=== PATIENT | female | born 1965 | race Caucasian/White ===

== ENCOUNTER 2020-05-07 19:02 | Inpatient (IN) | payer OTHER ==
[2020-05-07] MEDS ORDERED: PIPERACILLIN-TAZOBACTAM 3.375 GM in SODIUM CHLORIDE 0.9% 100 ML IVPB STA (19:27)
[2020-05-07] MEDS ORDERED: VANCOMYCIN IV PER PHARMACY 1 EACH MISC MISCELLANE PRN (19:27)
[2020-05-07] MEDS ORDERED: IBUPROFEN 600 MG TAB PO STA (19:27)
[2020-05-07] MEDS ORDERED: VANCOMYCIN 2,000 MG in SODIUM CHLORIDE 0.9% 500 ML 500 ML IVPB STA (19:33)
--- NOTE | 2020-05-07 19:52 | ED ---
Skin/Abscess/FB HPI - General Chief complaint: Skin/Abscess/Foreign Body Stated complaint: cellulitis rt leg Time Seen by Provider: 05/07/20 19:19 Source: patient, RN notes reviewed, old records reviewed, Caregiver Mode of arrival: ambulatory Limitations: no limitations - History of Present Illness Initial comments: Patient states that he 54-year-old female who presents the emergency department today with chief complaint of right lower extremity cellulitis. Patient was sent here from [facility]. Patient reportedly woke up today with significant r edness and swelling over right lower extremity. She reports she does have dry cracked heels. She is nondiabetic. Patient has 101 fever. She reports she did notice that she had a fever couple days ago but that time and no signs of synovitis. Patient states that she's had no history of resistant skin infections. - Related Data Home Medications Medication Instructions Recorded Confirmed A.C.S.(All Cells Salts) Oral 2 sprays PO BID 05/07/20 05/07/20 Solution Straightening Press Operator Capsule 2 cap PO TID 05/07/20 05/07/20 Iosol Oral Drops 3 drops PO DAILY 05/07/20 05/07/20 Med-Stim Capsule 1 cap PO TID 05/07/20 05/07/20 Allergies Allergy/AdvReac Type Severity Reaction Status Date / Time Fish Containing Products Allergy Anaphylaxis Verified 05/07/20 21:13 [Fish] watermelon Allergy Anaphylaxis Verified 05/07/20 21:13 Review of Systems ROS Statement: Those systems with pertinent positive or pertinent negative responses have been documented in the HPI. ROS Other: All systems not noted in ROS Statement are negative. Past Medical History Past Medical History: Thyroid Disorder Additional Past Medical History / Comment(s): hypothyroidism History of Any Multi-Drug Resistant Organisms: None Reported Past Surgical History: Cholecystectomy Past Psychological History: No Psychological Hx Reported Smoking Status: Never smoker Past Alcohol Use History: Rare Past Drug Use History: None Reported General Exam - General Exam Comments Initial Comments: 54 year old female, no distress. Limitations: no limitations General appearance: alert, in no apparent distress Head exam: Present: atraumatic, normocephalic, normal inspection Eye exam: Present: normal appearance, PERRL, EOMI. Absent: scleral icterus, conjunctival injection, periorbital swelling ENT exam: Present: normal exam, mucous membranes moist Neck exam: Present: normal inspection Respiratory exam: Present: normal lung sounds bilaterally. Absent: respiratory distress, wheezes, rales, rhonchi, stridor Cardiovascular Exam: Present: regular rate, normal rhythm, normal heart sounds. Absent: systolic murmur, diastolic murmur, rubs, gallop, clicks GI/Abdominal exam: Present: soft Extremities exam: Present: normal inspection, full ROM, normal capillary refill, other (Patient has significant erythema and induration over the right leg and calf up to the knee. No palpable cord.). Absent: tenderness, pedal edema, joint swelling, calf tenderness Back exam: Present: normal inspection Neurological exam: Present: alert, oriented X3, CN II-XII intact Psychiatric exam: Present: normal affect, normal mood Skin exam: Present: warm, dry, intact, normal color. Absent: rash Course Vital Signs 05/07/20 05/07/20 05/07/20 19:08 20:23 21:05 Temperature 101.2 F H 98.7 F Pulse Rate 142 H 110 H 101 H Respiratory 20 19 18 Rate Blood Pressure 164/96 147/96 145/97 O2 Sat by Pulse 96 99 96 Oximetry 05/07/20 22:04 Temperature Pulse Rate 100 Respiratory 19 Rate Blood Pressure 134/88 O2 Sat by Pulse 97 Oximetry Medical Decision Making - Medical Decision Making 54-year-old female presents with 1 day of significant right lower extremity redness and swelling. Patient states initially started with cracked sore in her foot. She is nondiabetic. Patient has extensive cellulitis extending to the knee. Patient was started on IV Zosyn and vancomycin. She did have a fever of 102 today. Patient is also found to have urinary tract infection. Patient will have urine culture completed. Discussed the case with Shaheed Butler who accepts admission for [facility]. - Lab Data Result diagrams: 05/07/20 19:51 05/07/20 19:51 Lab Results 05/07/20 05/07/20 05/07/20 Range/Units 19:51 19:51 19:51 WBC 17.7 H (3.8-10.6) k/uL RBC 4.58 (3.80-5.40) m/uL Hgb 14.3 (11.4-16.0) gm/dL Hct 41.9 (34.0-46.0) % MCV 91.4 (80.0-100.0) fL MCH 31.1 (25.0-35.0) pg MCHC 34.0 (31.0-37.0) g/dL RDW 12.4 (11.5-15.5) % Plt Count 241 (150-450) k/uL MPV 7.7 Neutrophils % 86 % Lymphocytes % 6 % Monocytes % 4 % Eosinophils % 1 % Basophils % 1 % Neutrophils # 15.1 H (1.3-7.7) k/uL Lymphocytes # 1.1 (1.0-4.8) k/uL Monocytes # 0.6 (0-1.0) k/uL Eosinophils # 0.2 (0-0.7) k/uL Basophils # 0.2 (0-0.2) k/uL PT 10.4 (9.0-12.0) sec INR 1.0 (<1.2) APTT 22.3 (22.0-30.0) sec Sodium 135 L (137-145) mmol/L Potassium 3.7 (3.5-5.1) mmol/L Chloride 104 (98-107) mmol/L Carbon Dioxide 21 L (22-30) mmol/L Anion Gap 10 mmol/L BUN 14 (7-17) mg/dL Creatinine 0.83 (0.52-1.04) mg/dL Est GFR (CKD-EPI)AfAm >90 (>60 ml/min/1.73 sqM) Est GFR (CKD-EPI)NonAf 80 (>60 ml/min/1.73 sqM) Glucose 133 H (74-99) mg/dL Plasma Lactic Acid Brennen (0.7-2.0) mmol/L Calcium 9.1 (8.4-10.2) mg/dL Total Bilirubin 1.0 (0.2-1.3) mg/dL AST 36 (14-36) U/L ALT 37 H (4-34) U/L Alkaline Phosphatase 92 (38-126) U/L C-Reactive Protein 216.3 H (<10.0) mg/L Total Protein 7.3 (6.3-8.2) g/dL Albumin 4.1 (3.5-5.0) g/dL Urine Color Urine Appearance (Clear) Urine pH (5.0-8.0) Ur Specific [place] (1.001-1.035) Urine Protein (Negative) Urine Glucose (UA) (Negative) Urine Ketones (Negative) Urine Blood (Negative) Urine Nitrite (Negative) Urine Bilirubin (Negative) Urine Urobilinogen (<2.0) mg/dL Ur Leukocyte Esterase (Negative) Urine RBC (0-5) /hpf Urine WBC (0-5) /hpf Urine WBC Clumps (None) /hpf Ur Squamous Epith Cells (0-4) /hpf Urine Mucus (None) /hpf 05/07/20 05/07/20 Range/Units 19:51 20:10 WBC (3.8-10.6) k/uL RBC (3.80-5.40) m/uL Hgb (11.4-16.0) gm/dL Hct (34.0-46.0) % MCV (80.0-100.0) fL MCH (25.0-35.0) pg MCHC (31.0-37.0) g/dL RDW (11.5-15.5) % Plt Count (150-450) k/uL MPV Neutrophils % % Lymphocytes % % Monocytes % % Eosinophils % % Basophils % % Neutrophils # (1.3-7.7) k/uL Lymphocytes # (1.0-4.8) k/uL Monocytes # (0-1.0) k/uL Eosinophils # (0-0.7) k/uL Basophils # (0-0.2) k/uL PT (9.0-12.0) sec INR (<1.2) APTT (22.0-30.0) sec Sodium (137-145) mmol/L Potassium (3.5-5.1) mmol/L Chloride (98-107) mmol/L Carbon Dioxide (22-30) mmol/L Anion Gap mmol/L BUN (7-17) mg/dL Creatinine (0.52-1.04) mg/dL Est GFR (CKD-EPI)AfAm (>60 ml/min/1.73 sqM) Est GFR (CKD-EPI)NonAf (>60 ml/min/1.73 sqM) Glucose (74-99) mg/dL Plasma Lactic Acid Brennen 1.3 (0.7-2.0) mmol/L Calcium (8.4-10.2) mg/dL Total Bilirubin (0.2-1.3) mg/dL AST (14-36) U/L ALT (4-34) U/L Alkaline Phosphatase (38-126) U/L C-Reactive Protein (<10.0) mg/L Total Protein (6.3-8.2) g/dL Albumin (3.5-5.0) g/dL Urine Color Dark Yellow Urine Appearance Turbid H (Clear) Urine pH 6.5 (5.0-8.0) Ur Specific [place] 1.030 (1.001-1.035) Urine Protein 2+ H (Negative) Urine Glucose (UA) Negative (Negative) Urine Ketones 2+ H (Negative) Urine Blood Small H (Negative) Urine Nitrite Negative (Negative) Urine Bilirubin Negative (Negative) Urine Urobilinogen 2.0 (<2.0) mg/dL Ur Leukocyte Esterase Large H (Negative) Urine RBC 40 H (0-5) /hpf Urine WBC >182 H (0-5) /hpf Urine WBC Clumps Few H (None) /hpf Ur Squamous Epith Cells 11 H (0-4) /hpf Urine Mucus Moderate H (None) /hpf 05/07/20 20:23 EKG shows sinus tachycardia will voltage QRS. Septal infarct age undetermined. T-wave consider inferior ischemia. Ventricular rate of 1 21 bpm period. Intervals 168 ms. QRS duration is 92 ms. QT QTc is 36/434 ms. - Radiology Data Radiology results: report reviewed No acute bony amount. Soft tissue swelling consistent with cellulitis. Foot x- ray shows soft tissue swelling cellulitis. No evidence of osteomyelitis. Ultrasound shows no evidence of DVT within the right leg. Disposition Clinical Impression: Cellulitis of right leg, Sepsis, UTI (urinary tract infection) Disposition: ADMITTED IP TO THIS HOSP Condition: Stable Is patient prescribed a controlled substance at d/c from ED?: No Referrals: None,Stated [Primary Care Provider] - 1-2 days Time of Disposition: 22:34
[2020-05-07] MEDS: SODIUM CHLORIDE 0.9% 1,000 ML IV SCH (20:12)
[2020-05-07] MEDS: SODIUM CHLORIDE 0.9% 500 ML 500 ML IV SCH ×3 (20:14→22:09)
[2020-05-07] MEDS ORDERED: MORPHINE SULFATE 4 MG/ML SYRINGE IVP STA (20:20)
[2020-05-07 20:23] LABS: Basophils # (A) 0.2 k/uL (0-0.2); Basophils % (A) 1 %; Eosinophils # (A) 0.2 k/uL (0-0.7); Eosinophils % (A) 1 %; HCT 41.9 % (34.0-46.0); HGB 14.3 gm/dL (11.4-16.0); Lymphocytes # (A) 1.1 k/uL (1.0-4.8); Lymphocytes % (A) 6 %; MCH 31.1 pg (25.0-35.0); MCV 91.4 fL (80.0-100.0); Mean Platelet Volume 7.7; Monocytes # (A) 0.6 k/uL (0-1.0); Monocytes % (A) 4 %; Neutrophils # (A) 15.1 k/uL (1.3-7.7); Neutrophils % (A) 86 %; Platelet Count 241 k/uL (150-450); RBC 4.58 m/uL (3.80-5.40); RDW 12.4 % (11.5-15.5); WBC 17.7 k/uL (3.8-10.6)
[2020-05-07 20:28] LABS: Appearance,Urine Turbid (Clear); Bilirubin,Urine Negative (Negative); Blood,Urine Small (Negative); Color,Urine Dark Yellow; Glucose,Urine (UA) Negative (Negative); Ketones,Urine 2+ (Negative); Leukocyte Esterase,Urine Large (Negative); Mucus,Urine Moderate /hpf; Nitrite,Urine Negative (Negative); PH, Urine 6.5 (5.0-8.0); Protein,Urine 2+ (Negative); RBC,Urine 40 /hpf (0-5); Squamous Epithelial Cell,Urine 11 /hpf (0-4); WBC,Urine >182 /hpf (0-5)
[2020-05-07 20:41] LABS: ALT 37 U/L (4-34); AST 36 U/L (14-36); African American GFR (CKD) >90 (>60 ml/min/1.73 sqM); Albumin 4.1 g/dL (3.5-5.0); Alkaline Phosphatase 92 U/L (38-126); Anion Gap 10 mmol/L; Blood Urea Nitrogen 14 mg/dL (7-17); Calcium 9.1 mg/dL (8.4-10.2); Carbon Dioxide 21 mmol/L (22-30); Chloride 104 mmol/L (98-107); Glucose 133 mg/dL (74-99); Non-African American GFR(CKD) 80 (>60 ml/min/1.73 sqM); Potassium 3.7 mmol/L (3.5-5.1); Sodium 135 mmol/L (137-145); Total Protein 7.3 g/dL (6.3-8.2)
--- NOTE | 2020-05-07 20:44 | XR ---
EXAMINATION TYPE: XR foot complete RT DATE OF EXAM: 05/07/2020 COMPARISON: NONE HISTORY: Cellulitis. TECHNIQUE: 3 views FINDINGS: There is diffuse soft tissue swelling. There is plantar calcaneal spurring. Metatarsals are intact. There is spurring at the first MP joint. I see no fracture nor dislocation. There is no foca l bone destruction. IMPRESSION: Soft tissue swelling consistent with cellulitis. No evidence of osteomyelitis.
--- NOTE | 2020-05-07 20:45 | XR ---
EXAMINATION TYPE: XR tibia fibula RT DATE OF EXAM: 05/07/2020 COMPARISON: NONE HISTORY: Cellulitis TECHNIQUE: 3 views FINDINGS: There is diffuse soft tissue swelling around the calf. I see no fracture nor dislocation. T here is no evidence of focal bone destruction. There is mild osteoarthritis at the knee joint. IMPRESSION: No acute bony abnormality. Soft tissue swelling consistent with cellulitis.
[2020-05-07 20:52] LABS: Partial Thromboplastin Time 22.3 sec (22.0-30.0); Prothrombin Time 10.4 sec (9.0-12.0)
[2020-05-07 21:24] LABS: C Reactive Protein 216.3 mg/L (<10.0)
--- NOTE | 2020-05-07 21:49 | US ---
EXAMINATION TYPE: US venous doppler duplex LE RT DATE OF EXAM: 05/07/2020 9:38 PM COMPARISON: NONE CLINICAL HISTORY: cellulitis. Cellulitis. Pain and swelling to right leg x 2 days. Redness. No hx of DVT. Patient does not take blood thinners. SIDE PERFORMED: Right TECHNIQUE: The lower extremity deep venous system is examined utilizing real time linear array sonog li with graded compression, doppler sonography and color-flow sonography. VESSELS IMAGED: Common Femoral Vein Deep Femoral Vein Greater Saphenous Vein * Femoral Vein Popliteal Vein Small Saphenous Vein * Proximal Calf Veins (* superficial vessels) Right Leg: Limited exam due to swelling and patient body habitus. No evidence of DVT in veins imaged at this time. There appears to be a duplicate popliteal vein distally. Limited visibility of proxima l calf veins. Hypoechoic area with hyperechoic center seen in the right groin measurin.0 x 1.3 x 1.0 cm. IMPRESSION: No evidence of deep vein thrombosis in the right leg.
[2020-05-07] MEDS ORDERED: ONDANSETRON 4 MG/2 ML VIAL IVP PRN (22:34)
[2020-05-07] MEDS ORDERED: NALOXONE 0.4 MG/ML 1 ML VIAL IV PRN (22:34)
[2020-05-07] MEDS ORDERED: KETOROLAC 15 MG/ML 1 ML VIAL IVP PRN (22:34)
[2020-05-07] MEDS ORDERED: MORPHINE SULFATE 4 MG/ML SYRINGE IV PRN (22:34)
[2020-05-07] MEDS ORDERED: ACETAMINOPHEN TAB 325 MG TAB PO PRN (22:34)
[2020-05-07] MEDS ORDERED: IBUPROFEN 400 MG TAB PO PRN (22:34)
[2020-05-08] MEDS: SODIUM CHLORIDE 0.9% 500 ML 500 ML IV SCH (01:31)
[2020-05-08 01:39] LABS: Glucose,Whole Blood 138 mg/dL (75-99)
[2020-05-08] MEDS: SODIUM CHLORIDE 0.9% 1,000 ML IV SCH ×3 (04:45→23:21)
[2020-05-08 06:30] LABS: Glucose,Whole Blood 107 mg/dL (75-99)
[2020-05-08] MEDS: HEPARIN SODIUM,PORCINE 5,000 UNIT/ML 1 ML VIAL SQ SCH ×2 (08:23→23:21)
[2020-05-08] MEDS ORDERED: [UNRECOGNIZED DRUG - OTHER] PO SCH (09:00)
[2020-05-08] MEDS ORDERED: PANTOPRAZOLE 40 MG/10 ML VIAL IV SCH (09:00)
[2020-05-08] MEDS ORDERED: [UNRECOGNIZED DRUG - OTHER] PO SCH (09:00)
[2020-05-08] MEDS ORDERED: [UNRECOGNIZED DRUG - OTHER] PO SCH (09:00)
[2020-05-08] MEDS ORDERED: FAMOTIDINE 20 MG/2 ML VIAL IV SCH (09:00)
[2020-05-08] MEDS ORDERED: VANCOMYCIN 2,000 MG in SODIUM CHLORIDE 0.9% 500 ML 500 ML IVPB SCH (09:00)
[2020-05-08] MEDS ORDERED: [UNRECOGNIZED DRUG - OTHER] PO SCH (09:00)
--- NOTE | 2020-05-08 10:21 | P.HPIM ---
History of Present Illness This is a pleasant 64 years old female with past medical history of hypothyroidism. Presents because of right leg swelling, warmth, tenderness of 3 days' duration, she denies trauma however this cracks in the heel. She denies chest pain or dyspnea or abdominal pain. No fever. No nausea vomiting. Vitas looks stable and patient is afebrile currently however on admission she had a fever of 101.2 Labs showed leukocytosis of 17.7 K, sodium 135, rest of CBC, INR, BMP and liver enzymes were unremarkable sugar is controlled. Urinalysis is suspicious of infection. Urine cultures pending. EKG showing sinus tachycardia with no significant ST-T changes. venous Doppler: No DVT in the right leg hypoechoic area with hyperEchoic Center seen in the right groin measuring 2.0 x 1.3 x 1.0 cm Right leg x-ray showing no acute bony abnormality. Soft tissue swelling consistent with cellulitis. Soft tissue swelling consistent with cellulitis. No evidence of osteomyelitis. In the emergency room patient was started on Zosyn and vancomycin time 1 doses and then continued with IV vancomycin. Infectious disease team was consulted from ED Review of Systems CONSTITUTIONAL: No fever, no malaise, no fatigue. HEENT: No recent visual problems or hearing problems. Denied any sore throat. CARDIOVASCULAR: No orthopnea, PND, no palpitations, no syncope. PULMONARY: No shortness of breath, no cough, no hemoptysis. GASTROINTESTINAL: No diarrhea, no nausea, no vomiting, no abdominal pain. Normoactive bowel sounds. NEUROLOGICAL: No headaches, no weakness, no numbness. HEMATOLOGICAL: Denies any bleeding or petechiae. GENITOURINARY: Denies any burning micturition, frequency, or urgency. MUSCULOSKELETAL/RHEUMATOLOGICAL: Denies any joint pain, swelling, or any muscle pain. ENDOCRINE: Denies any polyuria or polydipsia. Past Medical History Past Medical History: Thyroid Disorder Additional Past Medical History / Comment(s): hypothyroidism History of Any Multi-Drug Resistant Organisms: None Reported Past Surgical History: Cholecystectomy Past Psychological History: No Psychological Hx Reported Smoking Status: Never smoker Past Alcohol Use History: Rare Past Drug Use History: None Reported Medications and Allergies Home Medications Medication Instructions Recorded Confirmed Type A.C.S.(All Cells Salts) Oral 2 sprays PO BID 05/07/20 05/07/20 History Solution Embosser Apprentice Capsule 2 cap PO TID 05/07/20 05/07/20 History Iosol Oral Drops 3 drops PO DAILY 05/07/20 05/07/20 History Med-Stim Capsule 1 cap PO TID 05/07/20 05/07/20 History Allergies Allergy/AdvReac Type Severity Reaction Status Date / Time Fish Containing Products Allergy Anaphylaxis Verified 05/07/20 21:13 [Fish] watermelon Allergy Anaphylaxis Verified 05/07/20 21:13 Physical Exam Vitals: Vital Signs Temp Pulse Resp BP Pulse Ox 05/08/20 02:30 19 05/08/20 02:00 97.8 F 87 19 138/85 97 05/07/20 22:04 100 19 134/88 97 05/07/20 21:05 98.7 F 101 H 18 145/97 96 05/07/20 20:23 110 H 19 147/96 99 05/07/20 19:08 101.2 F H 142 H 20 164/96 96 Intake and Output 05/07/20 05/08/20 05/08/20 22:59 06:59 14:59 Other: # Voids 1 Weight 136.078 kg GENERAL: The patient is alert and oriented x3, not in any acute distress. Well developed, well nourished. HEENT: Pupils are round and equally reacting to light. EOMI. No scleral icterus. No conjunctival pallor. Normocephalic, atraumatic. No pharyngeal erythema. No thyromegaly. CARDIOVASCULAR: S1 and S2 present. No murmurs, rubs, or gallops. PULMONARY: Chest is clear to auscultation, no wheezing or crackles. ABDOMEN: Soft, nontender, nondistended, normoactive bowel sounds. No palpable organomegaly. MUSCULOSKELETAL: No joint swelling or deformity. -EXTREMITIES: No cyanosis, clubbing, or pedal edema. Right leg swelling, warm, red and tender NEUROLOGICAL: Gross neurological examination did not reveal any focal deficits. SKIN: No rashes. No petechiae Results CBC & Chem 7: 05/07/20 19:51 05/07/20 19:51 Labs: Abnormal Lab Results - Last 24 Hours (Table) 05/07/20 05/07/20 05/07/20 Range/Units 19:51 19:51 20:10 WBC 17.7 H (3.8-10.6) k/uL Neutrophils # 15.1 H (1.3-7.7) k/uL Sodium 135 L (137-145) mmol/L Carbon Dioxide 21 L (22-30) mmol/L Glucose 133 H (74-99) mg/dL POC Glucose (mg/dL) (75-99) mg/dL ALT 37 H (4-34) U/L C-Reactive Protein 216.3 H (<10.0) mg/L Urine Appearance Turbid H (Clear) Urine Protein 2+ H (Negative) Urine Ketones 2+ H (Negative) Urine Blood Small H (Negative) Ur Leukocyte Esterase Large H (Negative) Urine RBC 40 H (0-5) /hpf Urine WBC >182 H (0-5) /hpf Urine WBC Clumps Few H (None) /hpf Ur Squamous Epith Cells 11 H (0-4) /hpf Urine Mucus Moderate H (None) /hpf 05/08/20 05/08/20 Range/Units 01:36 06:27 WBC (3.8-10.6) k/uL Neutrophils # (1.3-7.7) k/uL Sodium (137-145) mmol/L Carbon Dioxide (22-30) mmol/L Glucose (74-99) mg/dL POC Glucose (mg/dL) 138 H 107 H (75-99) mg/dL ALT (4-34) U/L C-Reactive Protein (<10.0) mg/L Urine Appearance (Clear) Urine Protein (Negative) Urine Ketones (Negative) Urine Blood (Negative) Ur Leukocyte Esterase (Negative) Urine RBC (0-5) /hpf Urine WBC (0-5) /hpf Urine WBC Clumps (None) /hpf Ur Squamous Epith Cells (0-4) /hpf Urine Mucus (None) /hpf Microbiology - Last 24 Hours (Table) 05/07/20 20:10 Urine Culture - Preliminary Urine,Clean Catch Assessment and Plan Assessment: Cellulitis of the right leg Possible Acute urinary tract infection Sepsis secondary to above Right groin lymphadenopathy versus mass (ultrasound: hypoechoic area with hyperEchoic Center seen in the right groin measuring 2.0 x 1.3 x 1.0 cm) Hypothyroidism Morbid Obesity with BMI of 45 Plan: This is a pleasant 54 years old female who presents with right leg cellulitis and possible UTI and right groin mass. Continue with antibiotics, monitor leg swelling clinically, follow-up urine culture. Monitor labs and creatinine. Consult surgery team for the right groin mass versus lymphadenopathy Labs and medication were reviewed.. Continue same treatment. Continue with symptomatic treatment. Resume home medication. Monitor lytes and vitals. DVT and GI prophylaxis. Further recommendations depends on the clinical course of the patient DVT prophylaxis: Subcutaneous heparin GI Prophylaxis: Pepcid PT/OT: Pending
[2020-05-08 11:32] LABS: Glucose,Whole Blood 116 mg/dL (75-99)
--- NOTE | 2020-05-08 14:53 | P.GSCN ---
History of Present Illness Consult date: 05/08/20 History of present illness: CHIEF COMPLAINT: Right leg cellulitis HISTORY OF PRESENT ILLNESS: This is a 54-year-old female with a known history of hypothyroidism and cholecystectomy. She presents to the ER with complaints of right leg swelling, tenderness and redness that started about 3 days ago. Patient denies any trauma to her leg. She does report having a cracked heel may be activating factor. She's never had cellulitis before. Denies any history of diabetes. She has been febrile with a temp of 101.2 WBC 17.7. She had a venous Doppler that was negative for DVT of the right leg. But did reveal a hypoechoic area with hyperechoic centers seen in the right groin measuring 2 x 1.3 x 1.0 cm. Patient is currently on IV vancomycin. Patient denies any nausea or vomiting. Denies any abdominal pain. Denies any urinary symptoms. PAST MEDICAL HISTORY: See list. PAST SURGICAL HISTORY: See list. MEDICATIONS: See list. ALLERGIES: See list. SOCIAL HISTORY: No illicit drug use. REVIEW OF SYSTEMS: CONSTITUTIONAL: Denies fever or chills. HEENT: Denies blurred vision, vision changes, or eye pain. Denies hemoptysis CARDIOVASCULAR: Denies chest pain or pressure. RESPIRATORY: No shortness of breath. GASTROINTESTINAL: See HPI for pertinent findings HEMATOLOGIC: Denies bleeding disorders. GENITOURINARY: Denies any blood in urine or increased urinary frequency. SKIN: Denies pruitis. Denies rash. PHYSICAL EXAM: VITAL SIGNS: Reviewed GENERAL: Well-developed in no acute distress. HEENT: No sclera icterus. Extraocular movements grossly intact. Moist buccal mucosa. Head is atraumatic, normocephalic. No nasal drainage. ABDOMEN: Soft. Nondistended. Nondistended NEUROLOGIC: Alert and oriented. Cranial nerves II through XII grossly intact. Extremities: Right leg lower extremity cellulitis. Erythema and swelling below the knee to the right ankle. Patient does have cracked heel. Groin: Right groin 2 palpable pea-sized lymph nodes LABORATORY DATA: WBC 17.7 hemoglobin 14.3 creatinine 0.83 IMAGING: Venous Doppler negative for DVT of the right leg. But did reveal a hypoechoic area with hyperechoic centers seen in the right groin measuring 2 x 1.3 x 1.0 cm. X-ray of the tibia-fibula fibula of the right leg no acute bony abnormality. Soft tissue swelling consistent with cellulitis Right foot x-ray soft tissue consistent with cellulitis. No evidence of osteomyelitis ASSESSMENT: 1. Right lower extremity cellulitis with sepsis 2. hypoechoic area with hyperechoic center seen in the right groin measuring 2 x 1.3 x 1.0 cm noted on venous Doppler. This could be due to enlarged lymph node that is inflamed from the right lower extremity cellulitis PLAN: -Continue IV antibiotics -We'll continue to monitor -No surgical intervention planned at this time Thank you for this consultation Physician Grinding And Polishing Laborer note has been reviewed by physician. Signing provider agrees with the documented findings, assessment, and plan of care. Past Medical History Past Medical History: Thyroid Disorder Additional Past Medical History / Comment(s): hypothyroidism History of Any Multi-Drug Resistant Organisms: None Reported Past Surgical History: Cholecystectomy Past Psychological History: No Psychological Hx Reported Smoking Status: Never smoker Past Alcohol Use History: Rare Past Drug Use History: None Reported Medications and Allergies Home Medications Medication Instructions Recorded Confirmed Type A.C.S.(All Cells Salts) Oral 2 sprays PO BID 05/07/20 05/07/20 History Solution Laboratory Apparatus Glass Grinder Capsule 2 cap PO TID 05/07/20 05/07/20 History Iosol Oral Drops 3 drops PO DAILY 05/07/20 05/07/20 History Med-Stim Capsule 1 cap PO TID 05/07/20 05/07/20 History Allergies Allergy/AdvReac Type Severity Reaction Status Date / Time Fish Containing Products Allergy Anaphylaxis Verified 05/07/20 21:13 [Fish] watermelon Allergy Anaphylaxis Verified 05/07/20 21:13 Surgical - Exam Vital Signs Temp Pulse Resp BP Pulse Ox 101.2 F H 142 H 20 164/96 96 05/07/20 19:08 05/07/20 19:08 05/07/20 19:08 05/07/20 19:08 05/07/20 19:08 Results - Labs 05/07/20 19:51 05/07/20 19:51 Abnormal Lab Results - Last 24 Hours (Table) 05/07/20 05/07/20 05/07/20 Range/Units 19:51 19:51 20:10 WBC 17.7 H (3.8-10.6) k/uL Neutrophils # 15.1 H (1.3-7.7) k/uL Sodium 135 L (137-145) mmol/L Carbon Dioxide 21 L (22-30) mmol/L Glucose 133 H (74-99) mg/dL POC Glucose (mg/dL) (75-99) mg/dL ALT 37 H (4-34) U/L C-Reactive Protein 216.3 H (<10.0) mg/L Urine Appearance Turbid H (Clear) Urine Protein 2+ H (Negative) Urine Ketones 2+ H (Negative) Urine Blood Small H (Negative) Ur Leukocyte Esterase Large H (Negative) Urine RBC 40 H (0-5) /hpf Urine WBC >182 H (0-5) /hpf Urine WBC Clumps Few H (None) /hpf Ur Squamous Epith Cells 11 H (0-4) /hpf Urine Mucus Moderate H (None) /hpf 05/08/20 05/08/20 05/08/20 Range/Units 01:36 06:27 11:31 WBC (3.8-10.6) k/uL Neutrophils # (1.3-7.7) k/uL Sodium (137-145) mmol/L Carbon Dioxide (22-30) mmol/L Glucose (74-99) mg/dL POC Glucose (mg/dL) 138 H 107 H 116 H (75-99) mg/dL ALT (4-34) U/L C-Reactive Protein (<10.0) mg/L Urine Appearance (Clear) Urine Protein (Negative) Urine Ketones (Negative) Urine Blood (Negative) Ur Leukocyte Esterase (Negative) Urine RBC (0-5) /hpf Urine WBC (0-5) /hpf Urine WBC Clumps (None) /hpf Ur Squamous Epith Cells (0-4) /hpf Urine Mucus (None) /hpf Microbiology - Last 24 Hours (Table) 05/07/20 20:10 Urine Culture - Preliminary Urine,Clean Catch Diabetes panel 05/07/20 Range/Units 19:51 Sodium 135 L (137-145) mmol/L Potassium 3.7 (3.5-5.1) mmol/L Chloride 104 (98-107) mmol/L Carbon Dioxide 21 L (22-30) mmol/L BUN 14 (7-17) mg/dL Creatinine 0.83 (0.52-1.04) mg/dL Glucose 133 H (74-99) mg/dL Calcium 9.1 (8.4-10.2) mg/dL AST 36 (14-36) U/L ALT 37 H (4-34) U/L Alkaline Phosphatase 92 (38-126) U/L Total Protein 7.3 (6.3-8.2) g/dL Albumin 4.1 (3.5-5.0) g/dL Calcium panel 05/07/20 Range/Units 19:51 Calcium 9.1 (8.4-10.2) mg/dL Albumin 4.1 (3.5-5.0) g/dL Pituitary panel 05/07/20 Range/Units 19:51 Sodium 135 L (137-145) mmol/L Potassium 3.7 (3.5-5.1) mmol/L Chloride 104 (98-107) mmol/L Carbon Dioxide 21 L (22-30) mmol/L BUN 14 (7-17) mg/dL Creatinine 0.83 (0.52-1.04) mg/dL Glucose 133 H (74-99) mg/dL Calcium 9.1 (8.4-10.2) mg/dL Adrenal panel 05/07/20 Range/Units 19:51 Sodium 135 L (137-145) mmol/L Potassium 3.7 (3.5-5.1) mmol/L Chloride 104 (98-107) mmol/L Carbon Dioxide 21 L (22-30) mmol/L BUN 14 (7-17) mg/dL Creatinine 0.83 (0.52-1.04) mg/dL Glucose 133 H (74-99) mg/dL Calcium 9.1 (8.4-10.2) mg/dL Total Bilirubin 1.0 (0.2-1.3) mg/dL AST 36 (14-36) U/L ALT 37 H (4-34) U/L Alkaline Phosphatase 92 (38-126) U/L Total Protein 7.3 (6.3-8.2) g/dL Albumin 4.1 (3.5-5.0) g/dL
[2020-05-08 16:31] LABS: Glucose,Whole Blood 119 mg/dL (75-99)
--- NOTE | 2020-05-08 23:41 | CONS ---
CONSULTATION DATE OF SERVICE: 05/08/2020 REASON FOR CONSULTATION: Right lower extremity cellulitis. HISTORY OF PRESENT ILLNESS: The patient is a 54-year-old female presenting to the ER at [facility] yesterday evening for evaluation of increasing pain, swelling and redness of the right lower extremity and this patient's symptoms started a few days prior to presentation to the hospital. The patient noticed to have more swelling and redness of the right leg in addition to the pain. Patient described the pain to be more of a burning, at times sharp, intensity 5 to 6 out of 10 and no radiation. The patient denies any skin breakdown or any drainage. The patient did have a fever. The patient was initially evaluated in the [facility] urgent care and the patient was advised to go to the hospital for evaluation. On arrival to the ER, the patient did have fever of 101 degrees Fahrenheit. The patient was tachycardic. The patient did have white count of 17.7, BUN of 14, creatinine 0.83. Also had positive urine. The patient did have x- rays of the foot and tibia and fibula that was negative and ultrasound that was negative for DVT with evidence of lymphadenopathy in the right groin. The patient was started on vancomycin. Infectious Disease was consulted for further management of antibiotic therapy. REVIEW OF SYSTEMS: Positive points have been mentioned in HPI. Rest of systems are negative. PAST MEDICAL HISTORY: Hypothyroidism. PAST SURGICAL HISTORY: Cholecystectomy. SOCIAL HISTORY: Denies smoking. Rarely drinks. . Lives with her . FAMILY HISTORY: ALLERGIES: No known drug allergies. MEDICATIONS: The patient currently on Tylenol, heparin, Toradol, morphine, Narcan, Zofran, Protonix, and vancomycin pharmacy to dose. PHYSICAL EXAMINATION: Blood pressure 132/86, pulse 100. Temperature 98.2. She is 97% on room air. General description: The patient is a middle-aged female lying in bed in no distress. No tachypnea or accessory muscles of respiration use. HEENT: Examination shows no pallor or scleral icterus. Oral mucous membranes dry. No pharyngeal erythema or thrush. NECK: Trachea central. No thyromegaly. LUNGS: Unlabored breathing. Clear to auscultation anteriorly. No wheezes or crackles. HEART S1, S2. Regular rate and rhythm. ABDOMEN: Soft, no tenderness. No guarding or rigidity. EXTREMITIES: Right leg with diffuse swelling and redness. Warm to touch. No evidence of skin breakdown or any drainage. NEUROLOGICAL: Patient is awake, alert, oriented times three. Mood and affect normal. LABS: Hemoglobin 14.8, white count 13.7, BUN of 14, creatinine 0.83. Electrolytes have been normal. CRP 16.3. Urine is positive. DIAGNOSTIC IMPRESSION AND PLAN: Patient admitted to the hospital with lower extremity cellulitis. Patient did have a fever, tachycardia and elevated white count, source is right lower extremity cellulitis in this patient who did have diffuse swelling and redness, likely streptococcal disease, clinically doubt MRSA gram-negative infection. PLAN: 1. Discontinue vancomycin. 2. Start the patient on cefazolin 2 grams q.8 hours. 3. Shukri wrap to the right leg . 4. We will follow on her clinical condition and culture to further adjust medication if needed. Thank you for this consultation. We will follow this patient along with you. MMODL / IJN: [id number] /
[2020-05-09 07:02] LABS: Basophils # (A) 0.1 k/uL (0-0.2); Basophils % (A) 1 %; Eosinophils # (A) 0.2 k/uL (0-0.7); Eosinophils % (A) 2 %; HCT 34.7 % (34.0-46.0); HGB 11.6 gm/dL (11.4-16.0); Lymphocytes # (A) 1.8 k/uL (1.0-4.8); Lymphocytes % (A) 18 %; MCH 31.3 pg (25.0-35.0); MCHC 33.5 g/dL (31.0-37.0); MCV 93.4 fL (80.0-100.0); Mean Platelet Volume 7.1; Monocytes # (A) 0.4 k/uL (0-1.0); Monocytes % (A) 4 %; Neutrophils % (A) 71 %; Platelet Count 229 k/uL (150-450); RBC 3.71 m/uL (3.80-5.40); RDW 12.6 % (11.5-15.5); WBC 9.9 k/uL (3.8-10.6)
[2020-05-09] MEDS: HEPARIN SODIUM,PORCINE 5,000 UNIT/ML 1 ML VIAL SQ SCH ×2 (08:18→20:15)
[2020-05-09] MEDS: PANTOPRAZOLE 40 MG TABLET PO SCH (08:18)
[2020-05-09 11:44] LABS: African American GFR (CKD) 96.2 (60.0-200.0)
[2020-05-09] MEDS ORDERED: VANCOMYCIN TROUGH DUE 1 EACH MISC MISCELLANE ONE (20:00)
--- NOTE | 2020-05-10 01:32 | P.PN ---
Subjective Progress Note Date: 05/09/20 Principal diagnosis: RLE cellulitis Ms. Lozano is a 54-year-old female with a past medical history of hypothyroidism coming in with right leg swelling tenderness and warmth. She is currently being treated for right lower extremity cellulitis. Patient is seen and examined on the general medical floors today. Patient states that her lower extremity swelling and redness have improved a lot compared to yesterday. She denies having any fevers chills or rigors. No chest pain or palpitations. No cough breathing. On reviewing the patient has been afebrile. Saturating at 98% on room air heart rate of 78 and respiratory rate of 18. Patient had labs done showing decreased white count from 17-9 to 9 today. Active Medications Acetaminophen (Acetaminophen Tab 325 Mg Tab) 650 mg PO Q6HR PRN PRN Reason: Mild Pain or Fever > 100.5 Heparin Sodium (Porcine) (Heparin Sodium,Porcine 5,000 Unit/Ml 1 Ml Vial) 5,000 unit SQ Q12HR [facility] Last Admin: 05/09/20 08:18 Dose: 5,000 unit Documented by: Cefazolin Sodium 2 gm/ Sodium (Chloride) 50 mls @ 100 mls/hr IVPB Q8HR [facility] Last Admin: 05/09/20 08:18 Dose: 100 mls/hr Documented by: Ketorolac Tromethamine (Ketorolac 15 Mg/Ml 1 Ml Vial) 15 mg IVP Q6HR PRN PRN Reason: Moderate Pain Stop: 05/10/20 22:36 Morphine Sulfate (Morphine Sulfate 4 Mg/Ml Syringe) 4 mg IV Q4HR PRN PRN Reason: Severe Pain Naloxone HCl (Naloxone 0.4 Mg/Ml 1 Ml Vial) 0.2 mg IV Q2M PRN PRN Reason: Opioid Reversal Ondansetron HCl (Ondansetron 4 Mg/2 Ml Vial) 4 mg IVP Q8HR PRN PRN Reason: Nausea And Vomiting Pantoprazole Sodium (Pantoprazole 40 Mg Tablet) 40 mg PO AC-BRKFST [facility] Last Admin: 05/09/20 08:18 Dose: 40 mg Documented by: Objective - Vital Signs Vital signs: Vital Signs Temp 98.2 F 05/09/20 08:00 Pulse 93 05/09/20 08:00 Resp 16 05/09/20 08:00 BP 153/91 05/09/20 08:00 Pulse Ox 95 05/09/20 08:00 Intake & Output 05/08/20 05/09/20 05/09/20 18:59 06:59 18:59 Weight 136.078 kg Other: Voiding Method Toilet - Exam GENERAL: The patient is alert and oriented x3, not in any acute distress. Well developed, well nourished. HEENT: Pupils are round and equally reacting to light. EOMI. No scleral icterus. No conjunctival pallor. Normocephalic, atraumatic. No pharyngeal erythema. No thyromegaly. CARDIOVASCULAR: S1 and S2 present. No murmurs, rubs, or gallops. PULMONARY: Chest is clear to auscultation, no wheezing or crackles. ABDOMEN: Soft, nontender, nondistended, normoactive bowel sounds. No palpable organomegaly. MUSCULOSKELETAL: No joint swelling or deformity. -EXTREMITIES: No cyanosis, clubbing, or pedal edema. Right leg swelling, warm, red and tender- receded along the skin marking. NEUROLOGICAL: Gross neurological examination did not reveal any focal deficits. SKIN: No rashes. No petechiae - Labs CBC & Chem 7: 05/09/20 06:46 05/09/20 06:46 Labs: Abnormal Lab Results - Last 24 Hours (Table) 05/08/20 05/09/20 Range/Units 16:29 06:46 RBC 3.71 L (3.80-5.40) m/uL POC Glucose (mg/dL) 119 H (75-99) mg/dL Microbiology - Last 24 Hours (Table) 05/07/20 20:10 Urine Culture - Preliminary Urine,Clean Catch Gram Neg Bacilli 05/07/20 19:51 Blood Culture - Preliminary Blood No Growth after 24 hours Assessment and Plan Assessment: ASSESSMENT Sepsis due to Cellulitis of the right leg Acute urinary tract infection with E coli Sepsis secondary to above Right groin lymphadenopathy versus mass (ultrasound: hypoechoic area with hyperEchoic Center seen in the right groin measuring 2.0 x 1.3 x 1.0 cm) Hypothyroidism Morbid Obesity with BMI of 45 Plan: Patient was initially started on vancomycin which was discontinued and she has been started on cefazolin. Patient's urine culture came back positive for E. coli, she is already on cefazolin which can be continued. Surgery has evaluated the patient for the groin mass and suggested outpatient follow-up. Continue with the current medication regimen. Further recommendations to follow depending on the progress of the patient.
--- NOTE | 2020-05-10 04:08 | PN ---
PROGRESS NOTE DATE OF SERVICE: 05/09/2020. REASON FOR FOLLOW UP: Right lower extremity cellulitis. INTERVAL HISTORY: The patient is currently afebrile. The patient is breathing comfortably. Patient denies having any chest pain. No shortness of breath or cough. No abdominal pain. Overall swelling and redness are currently slightly decreased. PHYSICAL EXAMINATION: Blood pressure 130/84 with a pulse of 73, temperature 98.2. She is 98% on room air. General description is a middle-aged female lying in bed in no distress. Respiratory system: Unlabored breathing, clear to auscultation anteriorly. Heart S1, S2. Regular rate and rhythm. Abdomen soft, no tenderness. Right leg swelling and redness has slightly decreased. LABS: Hemoglobin 9.9. DIAGNOSTIC IMPRESSION AND PLAN: Patient with right lower extremity cellulitis. This patient seems to have shown clinical response to Rocephin to continue for another 24 hours along with Shukri wrap and monitor clinical course. MMODL / IJN: [id number] /
[2020-05-10] MEDS: PANTOPRAZOLE 40 MG TABLET PO SCH (09:53)
[2020-05-10] MEDS: HEPARIN SODIUM,PORCINE 5,000 UNIT/ML 1 ML VIAL SQ SCH ×2 (09:53→20:08)
--- NOTE | 2020-05-10 11:17 | P.PN ---
Progress Note - Text Progress Note Date: 05/10/20 Patient's cellulitis of her right long-term is improved. There is decreased redness and swelling. Patient continue receive IV antibiotic.
[2020-05-10 11:50] LABS: Non-African American GFR(CKD) 97.5 (60.0-200.0)
[2020-05-10 22:06] LABS: Glucose,Whole Blood 92 mg/dL (75-99)
--- NOTE | 2020-05-10 22:49 | PN ---
PROGRESS NOTE DATE OF SERVICE: 05/10/2020 REASON FOR FOLLOWUP: Right lower extremity cellulitis. INTERVAL HISTORY: The patient is currently afebrile, has been breathing comfortably. Right leg swelling is slightly decreased. Denies any chest pain, shortness of breath or cough, no abdominal pain. No diarrhea. PHYSICAL EXAMINATION: Blood pressure 147/92 with a pulse of 74, temperature 98.4. She is 98% on room air. General description: The patient is a middle-aged female lying in bed in no distress. Respiratory system: Unlabored breathing. Clear to auscultation anteriorly. Heart S1, S2. Regular rate and rhythm. Abdomen is soft, no tenderness. Right leg swelling is slightly decreased. LABS: Hemoglobin 11.3, white count 9.9, creatinine 0.7. DIAGNOSTIC IMPRESSION AND PLAN: Patient with acute right lower extremity cellulitis. Clinical improvement to continue for another 24 hours. Shukri wrap to the leg. Finish the oral Keflex. Positive culture with an E coli that is covered with Zosyn the patient is currently on. MMODL / IJN: [id number] /
--- NOTE | 2020-05-11 01:18 | P.PN ---
Subjective Progress Note Date: 05/10/20 Principal diagnosis: RLE cellulitis Ms. Lozano is a 54-year-old female with a past medical history of hypothyroidism coming in with right leg swelling tenderness and warmth. She is currently being treated for right lower extremity cellulitis. Patient is seen and examined on the general medical floors today. Patient states that her lower extremity swelling and redness have improved a lot compared to yesterday. She denies having any fevers chills or rigors. No chest pain or palpitations. No cough breathing. On reviewing the patient has been afebrile. Saturating at 98% on room air heart rate of 78 and respiratory rate of 18. Patient had labs done showing decreased white count from 17-9 to 9 today. On 05/10/2020-patient was seen and examined at bedside. Patient's right lower extremity redness and pain improving. But she still has some redness on the backside of her leg. She denies having any fevers chills or rigors. Cough or difficulty in breathing. No chest pain or palpitations. No dysuria or hematuria. Patient's vitals reviewed afebrile, blood pressure maintaining within normal limits and saturating at 98% on room air patient's labs from this morning showing white count of 9.9 hemoglobin 9.9. Active Medications Acetaminophen (Acetaminophen Tab 325 Mg Tab) 650 mg PO Q6HR PRN PRN Reason: Mild Pain or Fever > 100.5 Heparin Sodium (Porcine) (Heparin Sodium,Porcine 5,000 Unit/Ml 1 Ml Vial) 5,000 unit SQ Q12HR [facility] Last Admin: 05/10/20 20:08 Dose: 5,000 unit Documented by: Cefazolin Sodium 2 gm/ Sodium (Chloride) 50 mls @ 100 mls/hr IVPB Q8HR [facility] Last Admin: 05/10/20 23:21 Dose: 100 mls/hr Documented by: Morphine Sulfate (Morphine Sulfate 4 Mg/Ml Syringe) 4 mg IV Q4HR PRN PRN Reason: Severe Pain Naloxone HCl (Naloxone 0.4 Mg/Ml 1 Ml Vial) 0.2 mg IV Q2M PRN PRN Reason: Opioid Reversal Ondansetron HCl (Ondansetron 4 Mg/2 Ml Vial) 4 mg IVP Q8HR PRN PRN Reason: Nausea And Vomiting Pantoprazole Sodium (Pantoprazole 40 Mg Tablet) 40 mg PO AC-BRKFST [facility] Last Admin: 05/10/20 09:53 Dose: 40 mg Documented by: Objective - Vital Signs Vital signs: Vital Signs Temp 98.4 F 05/10/20 14:00 Pulse 74 05/10/20 14:00 Resp 16 05/10/20 14:00 BP 147/92 05/10/20 16:48 Pulse Ox 16 L 05/10/20 14:00 Intake & Output 05/09/20 05/10/20 05/10/20 18:59 06:59 18:59 Intake Total 540 Output Total 3 Balance 537 Intake: Oral 540 Output: Urine 3 Other: Voiding Method Toilet - Exam PHYSICAL EXAM GENERAL: The patient is alert and oriented x3, not in any acute distress. Well developed, well nourished. HEENT: Pupils are round and equally reacting to light. EOMI. No scleral icterus. No conjunctival pallor. PULMONARY: Chest is clear to auscultation, no wheezing or crackles. ABDOMEN: Soft, nontender, nondistended, normoactive bowel sounds. No palpable organomegaly. MUSCULOSKELETAL: No joint swelling or deformity. -EXTREMITIES: No cyanosis, clubbing, or pedal edema. Right leg swelling, warm, red and tender- receded along the skin marking. NEUROLOGICAL: Gross neurological examination did not reveal any focal deficits. SKIN: No rashes. No petechiae - Labs CBC & Chem 7: 05/09/20 06:46 05/10/20 07:15 Labs: Microbiology - Last 24 Hours (Table) 05/07/20 20:10 Urine Culture - Final Urine,Clean Catch Escherichia coli 05/07/20 19:51 Blood Culture - Preliminary Blood No Growth after 48 hours Assessment and Plan Assessment: ASSESSMENT Sepsis due to Cellulitis of the right leg Acute urinary tract infection with E coli Sepsis secondary to above Right groin lymphadenopathy versus mass (ultrasound: hypoechoic area with hyperEchoic Center seen in the right groin measuring 2.0 x 1.3 x 1.0 cm) Hypothyroidism Morbid Obesity with BMI of 45 Plan: Patient was initially started on vancomycin which was discontinued and she has been started on cefazolin. Patient's urine culture came back positive for E. coli, she is already on cefazolin which can be continued. Surgery has evaluated the patient for the groin mass and suggested outpatient follow-up. She will still need IV abx as the redness on the posterior side of the leg still present. Continue with the current medication regimen. Further recommendations to follow depending on the progress of the patient.
[2020-05-11 07:13] LABS: Glucose,Whole Blood 116 mg/dL (75-99)
[2020-05-11] MEDS: HEPARIN SODIUM,PORCINE 5,000 UNIT/ML 1 ML VIAL SQ SCH (08:06)
[2020-05-11] MEDS: PANTOPRAZOLE 40 MG TABLET PO SCH (08:06)
[2020-05-11 09:10] LABS: African American GFR (CKD) 96.2 (60.0-200.0)
[2020-05-11 11:20] LABS: Glucose,Whole Blood 94 mg/dL (75-99)
--- NOTE | 2020-05-11 14:43 | P.PN ---
Subjective Progress Note Date: 05/11/20 CHIEF COMPLAINT: right leg cellulitis HISTORY OF PRESENT ILLNESS: Follow-up on right leg cellulitis and enlarged lymph nodes in right groin. Patient's cellulitis has improved greatly with IV antibiotics. She's had decreased redness and swelling in her right leg. Afebrile. PHYSICAL EXAM: VITAL SIGNS: Reviewed. GENERAL: Well-developed in no acute distress. HEENT: No sclera icterus. Extraocular movements grossly intact. Moist buccal mucosa. Head is atraumatic, normocephalic. ABDOMEN: Soft. Nondistended. Nontender. NEUROLOGIC: Alert and oriented. Cranial nerves II through XII grossly intact. Extremities: Right leg redness and swelling has decreased. No palpable right groin lymph nodes noted ASSESSMENT: 1. Right lower extremity cellulitis with sepsis 2. hypoechoic area with hyperechoic center seen in the right groin measuring 2 x 1.3 x 1.0 cm noted on venous Doppler. This could be due to enlarged lymph node that is inflamed from the right lower extremity cellulitis PLAN: -Antibiotics per infectious disease -No surgical intervention planned Physician Lodge Attendant note has been reviewed by physician. Signing provider agrees with the documented findings, assessment, and plan of care. Objective - Vital Signs Vital signs: Vital Signs Temp 98.4 F 05/11/20 08:00 Pulse 86 05/11/20 08:00 Resp 22 05/11/20 08:00 BP 136/84 05/11/20 08:00 Pulse Ox 97 05/11/20 08:00 Intake & Output 05/10/20 05/11/20 05/11/20 18:59 06:59 18:59 Other: Voiding Method Toilet # Voids 2 - Labs CBC & Chem 7: 05/09/20 06:46 05/11/20 06:31 Labs: Abnormal Lab Results - Last 24 Hours (Table) 05/11/20 Range/Units 06:57 POC Glucose (mg/dL) 116 H (75-99) mg/dL Microbiology - Last 24 Hours (Table) 05/07/20 19:51 Blood Culture - Preliminary Blood No Growth after 72 hours
--- NOTE | 2020-05-11 14:46 | P.DS ---
Providers Date of admission: 05/07/20 21:32 Expected date of discharge: 05/11/20 Attending physician: Alejandra Oconnor Consults: 05/07/20 22:34 Consult Physician Stat Consulting Provider: Nakia Frazier Consult Reason/Comments: R leg cellulitis Do you want consulting provider notified?: Yes 05/08/20 10:20 Consult Physician Routine Consulting Provider: Garth Dorado Consult Reason/Comments: Right groin mass/LAP. Right leg cellulitis Do you want consulting provider notified?: Yes Primary care physician: Stated None Hospital Course: HPI -Ms. Lozano is a pleasant 64 years old female with past medical history of hypothyroidism. Presents because of right leg swelling, warmth, tenderness of 3 days' duration, she denies trauma however this cracks in the heel. She denies chest pain or dyspnea or abdominal pain. No fever. No nausea vomiting.Patient is afebrile currently however on admission she had a fever of 101.2 Labs showed leukocytosis of 17.7 K, sodium 135, rest of CBC, INR, BMP and liver enzymes were unremarkable sugar is controlled. Urinalysis is suspicious of infection. Urine cultures pending. EKG showing sinus tachycardia with no significant ST-T changes. venous Doppler: No DVT in the right leg hypoechoic area with hyperEchoic Center seen in the right groin measuring 2.0 x 1.3 x 1.0 cm Right leg x-ray showing no acute bony abnormality. Soft tissue swelling consistent with cellulitis. Soft tissue swelling consistent with cellulitis. No evidence of osteomyelitis. In the emergency room patient was started on Zosyn and vancomycin time 1 doses and then continued with IV vancomycin. Infectious disease team was consulted from ED Hospital course - patient's antibiotics were changed to cefazolin by ID. Blood cultures have been negative. Urine cultures are positive for E. coli. Patient showed significant improvement in her right lower extremity cellulitis. Her redness and swelling improved. Patient states that she is able to bear weight and feels that the swelling is going down. She's been cleared by ID Dr. Frazier to be discharged home. She is advised to complete her antibiotic course with Keflex for 10 more days. Vital Signs 05/11/20 08:00 Temperature 98.4 F Pulse Rate [ 86 Pulse Oximetery ] Respiratory 22 Rate Blood Pressure 136/84 [Left Arm] O2 Sat by Pulse 97 Oximetry PHYSICAL EXAM GENERAL: The patient is alert and oriented x3, not in any acute distress. Well developed, well nourished. HEENT: Pupils are round and equally reacting to light. EOMI. No scleral icterus. No conjunctival pallor. PULMONARY: Chest is clear to auscultation, no wheezing or crackles. ABDOMEN: Soft, nontender, nondistended, normoactive bowel sounds. No palpable organomegaly. MUSCULOSKELETAL: No joint swelling or deformity. -EXTREMITIES: No cyanosis, clubbing, or pedal edema. Right leg swelling, warm, red and tender- receded along the skin marking. NEUROLOGICAL: Gross neurological examination did not reveal any focal deficits. SKIN: No rashes. No petechiae DISCHARGE DIAGNOSIS Sepsis due to Cellulitis of the right leg Acute urinary tract infection with E coli Sepsis secondary to above Right groin lymphadenopathy versus mass Hypothyroidism Morbid Obesity with BMI of 45 Follow-up: Patient is advised to complete her antibiotic course with Keflex. If she noticed any swelling or redness that is not getting any better, patient is advised to come back. Otherwise suggested follow-up with Dr. Frazier in 1 week. Patient Condition at Discharge: Stable Plan - Discharge Summary Discharge Rx Participant: No New Discharge Prescriptions: New Cephalexin [Keflex] 500 mg PO Q6HR 10 Days #40 cap Continue Med-Stim Capsule 1 cap PO TID Iosol Oral Drops 3 drops PO DAILY Operations Inspector Capsule 2 cap PO TID A.C.S.(All Cells Salts) Oral Solution 2 sprays PO BID Discharge Medication List A.C.S.(All Cells Salts) Oral Solution 2 sprays PO BID 05/07/20 [History] Operations Inspector Capsule 2 cap PO TID 05/07/20 [History] Iosol Oral Drops 3 drops PO DAILY 05/07/20 [History] Med-Stim Capsule 1 cap PO TID 05/07/20 [History] Cephalexin [Keflex] 500 mg PO Q6HR 10 Days #40 cap 05/11/20 [Rx] Follow up Appointment(s)/Referral(s): None,Stated [Primary Care Provider] - 1-2 days Discharge Disposition: HOME SELF-CARE
[2020-05-11 14:54] VITALS: BP 118/75; PULSE 73; RESP 20; TEMP 98.3
--- NOTE | 2020-05-11 15:11 | PN ---
PROGRESS NOTE DATE OF SERVICE: 05/11/2020 REASON FOR FOLLOWUP: Right lower extremity cellulitis. INTERVAL HISTORY: The patient is currently afebrile. Patient is feeling better, breathing comfortably. Patient denies having any chest pain, no shortness of breath. No cough. No nausea, no vomiting. No abdominal pain. Overall redness to the right leg has improved. PHYSICAL EXAMINATION: Blood pressure is 136/85, pulse 80, temperature is 97.4, she is 97% on room air. General description is a middle-aged female, lying in bed in no distress. RESPIRATORY SYSTEM: Unlabored breathing, clear to auscultation. HEART: S1, S2, regular rate and rhythm. ABDOMEN: Soft, no tenderness. DIAGNOSTIC IMPRESSION AND PLAN: Patient with right lower extremity cellulitis showing clinical improvement. Patient is on oral Keflex, prescription sent to pharmacy and close outpatient followup. MMODL / IJN: [id number] /
== END 2020-05-11 17:16 | disposition home or self-care (01) | DRG 872 ==
LOC: EC 19:02 → 4SSUR 21:32
PROVIDERS: ADMIT Hospitalist; ATTEND Hospitalist
DX: A41.9 Sepsis, unspecified organism (principal); L03.115 Cellulitis of right lower limb; N39.0 Urinary tract infection, site not specified; Z68.42 Body mass index [BMI] 45.0-49.9, adult; E66.01 Morbid (severe) obesity due to excess calories; E03.9 Hypothyroidism, unspecified; R59.0 Localized enlarged lymph nodes; B95.5 Unspecified streptococcus as the cause of diseases classified elsewhere; B96.20 Unspecified Escherichia coli [E. coli] as the cause of diseases classified elsewhere; Z79.899 Other long term (current) drug therapy; Z91.018 Allergy to other foods; Z90.49 Acquired absence of other specified parts of digestive tract
CPT/HCPCS: 36415; 80053; 81001; 82565; 83605; 85025; 85610; 85730; 86140; 87040; 87077; 87086; 87186; 93005; 96361; 96365; 96366; 96367; 96375; 99285

== ENCOUNTER → 2023-02-27 | Outpatient (CLI) | payer OTHER ==
--- NOTE | 2023-03-08 13:07 | MR ---
EXAMINATION TYPE: MR ankle RT wo/w con DATE OF EXAM: 02/27/2023 COMPARISON: Right foot radiograph 05/07/2020 HISTORY: 57-year-old female M86.8X7, Right ankle/ foot pain. Osteomyelitis, heel wound TECHNIQUE: Multiplanar, multisequence images of the right ankle were obtained before and after admini stration of 13 mL intravenous Gadavist gadolinium contrast. FINDINGS: There is severe diffuse subcutaneous soft tissue swelling. There is some scattered mild to moderate osteoarthritic change along the TMT joint articulations. Mild degenerative change at the tibiotalar joint with diffuse cartilage thinning and marginal spurrin g. There is some edema along the visualized distal gastrocnemius musculature at the myotendinous junctio n of the Achilles probably representing some underlying muscle strain. Otherwise, smooth delineation to the Achilles tendon. Small posterior tibiotalar joint effusion. Small subtalar joint effusion with contiguous 2.0 x 1.9 cm ganglion cysts extending laterally from the sinus tarsi. Some preserved fatty signal within the sin us Tarsi. There is deficiency of the ATFL fibers suggesting tear. PTFL appears intact. Thickening and inhomogen eous appearance of the CFL suggesting chronic or low-grade sprain. The lateral peroneal tendons appear intact. The medial flexor tendons appear intact. Inhomogeneous intermediate to low signal of the deep posteri or deltoid ligament fibers suggesting old sprain. There seems to be some thickening and inhomogeneous signal of the superomedial ligament of the spring ligament complex is well suggesting chronic versus low-grade sprain. The anterior extensor tendons and syndesmosis appear intact. The tarsal tunnel is clear. There is suggestion of some dressing overlying the plantar posterior heel soft tissues. There is some corresponding in soft tissue enhancement but no underlying osseous edema or suspicious bone marrow r eplacement. IMPRESSION: 1. Soft tissue ulcer along the plantar posterior heel. Some underlying heterogeneity and enhancement of the soft tissues here could indicate cellulitis. No evidence for underlying osteomyelitis. 2. Marked diffuse subcutaneous soft tissue swelling. 3. Mild osteoarthritic change tibiotalar joint and [id number] along the TMT joint articulations . 4. The ATFL appears torn. Grade 1 versus chronic sprain of the CFL. Also, either low-grade versus chr onic sprains of the deep deltoid ligament fibers and spring ligament. 5. There may be a mild strain along the Achilles myotendinous junction. 6. A 2.0 x 1.9 cm ganglion cyst laterally arising from the sinus tarsi. 7. Moderate sized plantar heel spur. Slight thickening at the plantar fascia here could reflect under fasciitis. Clinically correlate.
== END | disposition home or self-care (01) ==
LOC: RADMRIMAIN 20:45
PROVIDERS: ATTEND Podiatrist Foot & Ankle Surgery
DX: M86.8X7 Other osteomyelitis, ankle and foot (principal); M67.471 Ganglion, right ankle and foot; M77.31 Calcaneal spur, right foot; M19.071 Primary osteoarthritis, right ankle and foot; L97.519 Non-pressure chronic ulcer of other part of right foot with unspecified severity
CPT/HCPCS: 73723; A9585